=== PATIENT | female | born 2000 | race Caucasian/White ===

== ENCOUNTER → 2021-02-27 | Outpatient (CLI) | payer OTHER ==
--- NOTE | 2021-02-27 14:46 | US ---
EXAMINATION TYPE: US transvaginal DATE OF EXAM: 02/27/2021 COMPARISON: NONE CLINICAL HISTORY: R10.2 pelvic pain. pain TECHNIQUE: Transvaginal (TV). EXAM MEASUREMENTS: Uterus: 6.7 x 3.2 x 3.7 cm Endometrial Stripe: .3 cm Right Ovary: 2.7 x 1.3 x 1.6 cm Left Ovary: 2.7 x 1.3 x 1.7 cm 1. Uterus: Anteverted wnl 2. Endometrium: wnl 3. Right Ovary: wnl 4. Left Ovary: wnl 5. Bilateral Adnexa: wnl 6. Posterior cul-de-sac: wnl IMPRESSION: 1. No abnormality identified.
== END | disposition home or self-care (01) ==
LOC: RADUSWWP 13:31
PROVIDERS: ATTEND Obstetrics & Gynecology
DX: R10.2 Pelvic and perineal pain (principal)
CPT/HCPCS: 76830

== ENCOUNTER → 2023-06-04 | Outpatient (CLI) | payer MEDICAID ==
[2023-06-05 02:19] LABS: HCT 40.7 % (37.2-46.3); HGB 13.7 d/dL (12.0-15.0); MCH 30.1 pg (27.0-32.0); MCHC 33.7 d/dL (32.0-37.0); MCV 89.5 FL (80.0-97.0); Mean Platelet Volume 8.9 FL (9.5-12.2); NRBC Per 100 WBC 0 X 10*3/uL (0.00-0.01); Platelet Count 340 X 10*3/uL (140-440); RBC 4.55 X 10*6/uL (4.10-5.20); WBC 8.69 X 10*3/uL (4.50-10.00)
[2023-06-05 04:29] LABS: ALT 13 U/L (8-44); AST 19 U/L (13-35); Albumin 4.6 d/dL (3.8-4.9); Alkaline Phosphatase 62 U/L (41-126); BUN/Creat Ratio 10.62 Ratio (12.00-20.00); Blood Urea Nitrogen 8.5 mg/dL (9.0-27.0); Calcium 10.3 mg/dL (8.7-10.3); Carbon Dioxide 25.3 mmol/L (21.6-31.8); Chloride 104 mmol/L (96-109); Chol/HDL Ratio 2.54 Ratio; Globulin 2.7 d/dL (1.6-3.3); Glucose 73 mg/dL (70-110); Potassium 3.8 mmol/L (3.5-5.5); Sodium 140 mmol/L (135-145); Total Bilirubin 0.4 mg/dL (0.3-1.2); Total Protein 7.3 d/dL (6.2-8.2)
== END | disposition home or self-care (01) ==
LOC: LABWHC1 14:40
PROVIDERS: ATTEND Physician Assistant Medical
DX: Z00.00 Encounter for general adult medical examination without abnormal findings (principal); F34.0 Cyclothymic disorder; F41.1 Generalized anxiety disorder; J44.9 Chronic obstructive pulmonary disease, unspecified; Z86.69 Personal history of other diseases of the nervous system and sense organs
CPT/HCPCS: 36415; 80053; 80061; 84443; 85027

== ENCOUNTER → 2023-06-26 | Outpatient (CLI) | payer MEDICAID ==
--- NOTE | 2023-06-26 10:07 | USB ---
Reason for Exam: Clinical finding. Findings: The whole breast of both breasts, the axilla of both breasts and the retroareolar of both breasts were scanned. A complete US of all four quadrants of the breast, axilla, and retro-areolar region were reviewed. No solid or cystic masses are identified. Dense tissue is present throughout. No duct ectasia or axillar lymphadenopathy. Overall Assessment: Negative, BI-RAD 1 Management: Screening Mammogram of both breasts at age 40. Unless there is a clinical indication to start sooner. Further clinical management of patient's bilateral breast pain. Patient should continue monthly self breast exams. Results were given to the patient verbally at the time of exam. Electronically signed and approved by: Courtney Lambert M.D. Radiologist
== END | disposition home or self-care (01) ==
LOC: RADUSWWP 09:06
PROVIDERS: ATTEND Family Medicine
DX: N64.4 Mastodynia (principal)

== ENCOUNTER → 2023-11-13 | Outpatient (CLI) | payer MEDICAID ==
--- NOTE | 2023-11-13 16:18 | US ---
EXAMINATION TYPE: US pelvic complete DATE OF EXAM: 11/13/2023 COMPARISON: None CLINICAL INDICATION: Female, 22 years old with history of N94.10 UNSPECIFIED DYSPAREUNIA; Pt states p elvic pain during menses, and also after intercourse TECHNIQUE: Transabdominal (TA). Transabdominal sonographic images of the pelvis were acquired. Tra nsvaginal not performed- pt did not want at this time since all anatomy was visualized transabdominal ly. Date of LMP: 10/26/2023 EXAM MEASUREMENTS: Uterus: 7.4 x 3.2 x 4.1 cm Endometrial Stripe: 0.9 cm Right Ovary: 3.3 x 2.0 x 2.3 cm Left Ovary: 3.2 x 2.4 x 2.3 cm 1. Uterus: Anteverted and otherwise wnl 2. Endometrium: wnl 3. Right Ovary: wnl 4. Left Ovary: wnl Normal follicular change in both ovaries. 5. Bilateral Adnexa: wnl 6. Posterior cul-de-sac: wnl IMPRESSION: Unremarkable transabdominal sonographic examination of the pelvis.
== END | disposition home or self-care (01) ==
LOC: RADUSWWP 15:30
PROVIDERS: ATTEND Family Medicine
DX: N94.10 Unspecified dyspareunia (principal); R10.2 Pelvic and perineal pain
CPT/HCPCS: 76856

== ENCOUNTER → 2024-08-03 | Outpatient (CLI) | payer MEDICAID ==
[2024-08-03 14:24] LABS: HGB 14.6 gm/dL (11.4-16.0); MCHC 33.3 g/dL (31.0-37.0); MCV 93.1 fL (80.0-100.0); Mean Platelet Volume 6.4; Platelet Count 360 k/uL (150-450); RBC 4.73 m/uL (3.80-5.40); RDW 12.5 % (11.5-15.5); WBC 8.9 k/uL (3.8-10.6)
[2024-08-03 14:38] LABS: ALT 14 U/L (4-34); AST 28 U/L (14-36); African American GFR (CKD) >90 (>60 ml/min/1.73 sqM); Albumin 4.7 g/dL (3.5-5.0); Albumin/Globulin Ratio 1.6; Alkaline Phosphatase 49 U/L (38-126); Anion Gap 7 mmol/L; Blood Urea Nitrogen 15 mg/dL (7-17); Carbon Dioxide 26 mmol/L (22-30); Chloride 106 mmol/L (98-107); Glucose 91 mg/dL (74-99); Non-African American GFR(CKD) >90 (>60 ml/min/1.73 sqM); Potassium 4.2 mmol/L (3.5-5.1); Sodium 139 mmol/L (137-145); Total Bilirubin 0.7 mg/dL (0.2-1.3); Total Protein 7.7 g/dL (6.3-8.2)
== END | disposition home or self-care (01) ==
LOC: LABMAIN 13:59
PROVIDERS: ATTEND Physician Assistant
CPT/HCPCS: 80053; 83036; 84443; 85027

== ENCOUNTER → 2025-05-02 | Outpatient (CLI) | payer MEDICAID ==
[2025-05-02 20:02] LABS: HCT 43.7 % (37.2-46.3); HGB 14.6 g/dL (12.0-15.0); MCH 30.4 pg (27.0-32.0); MCHC 33.4 g/dL (32.0-37.0); MCV 91.0 FL (80.0-97.0); NRBC Per 100 WBC 0 X 10*3/uL (0.00-0.01); Platelet Count 340 X 10*3/uL (140-440); RBC 4.80 X 10*6/uL (4.10-5.20); RDW 12.6 % (11.5-14.5); WBC 12.17 X 10*3/uL (4.50-10.00)
[2025-05-02 20:23] LABS: Anion Gap 12.90 mmol/L (4.00-12.00); BUN/Creat Ratio 13.86 Ratio (12.00-20.00); Blood Urea Nitrogen 9.7 mg/dL (9.0-27.0); Calcium 10.2 mg/dL (8.7-10.3); Carbon Dioxide 24.1 mmol/L (21.6-31.8); Chloride 103 mmol/L (96-109); Cholesterol 188.00 mg/dL (0.00-200.00); Glucose 97 mg/dL (70-110); HDL Cholesterol 79.00 mg/dL (40.00-60.00); LDL Cholesterol,Calculated 96.3 mg/dL (0.0-131.0); Potassium 5.0 mmol/L (3.5-5.5); Sodium 140 mmol/L (135-145); Triglycerides 63.70 mg/dL (0.00-149.00); VLDL Calculation 12.74 mg/dL (5.00-40.00)
[2025-05-02 21:12] LABS: HCG,Quantitative Serum <3.0 mIU/mL (0.0-6.0)
[2025-05-03 15:00] LABS: C. trachomatis,PCR Negative (Negative); N. gonorrhoeae,PCR Negative (Negative)
== END | disposition home or self-care (01) ==
LOC: LABWHC1 13:41
DX: Z30.09 Encounter for other general counseling and advice on contraception (principal); E66.3 Overweight; F33.0 Major depressive disorder, recurrent, mild; F41.1 Generalized anxiety disorder
CPT/HCPCS: 36415; 80048; 80061; 84702; 85027; 87491; 87591